=== PATIENT | male | born 1935 | race African-American/Black ===

== ENCOUNTER 2018-06-14 15:41 | Inpatient (IN) ==
[2018-06-14 17:45] LABS: Basophils # 0.1 10*3/uL (0.0-0.2); Eosinophils # 0.3 10*3/uL (0.0-0.87); Eosinophils % 0.1 % (0.00-10.9); Hematocrit 36.7 VOL% (42.0-52.0); Immature Granulocytes % 0.3 %; Immature Granulocytes Absolute 0.72 #; Lymphocytes # 233.5 10*3/uL (1.4-4.0); Lymphocytes % 93.5 % (21.2-54.2); Mean Corpuscular HGB Conc 26.7 GM/DL (32-36); Mean Corpuscular Hemoglobin 25 PG (27-34); Mean Corpuscular Volume 92.9 FL (87-102); Mean Platelet Volume 10.4 FL (9.6-12.0); Monocytes # 7.7 10*3/uL (0.11-0.8); Monocytes % 3.1 % (1.7-12.7); Neutrophils # 7.5 10*3/uL (1.4-7.4); Platelet Count 174 T/CUMM (130-400); Red Blood Count 3.95 MC/CUMM (3.8-5.5); Red Cell Distribution Width 14.9 % (9.3-17.3)
[2018-06-14 17:54] LABS: Hemoglobin 9.7 GM/DL (14.0-18.0); White Blood Count 249.8 T/CUMM (4-12)
[2018-06-14 17:59] LABS: Osmolality,Calculated 294.8 MOS/KG (273-304); Potassium 4.3 MMOL/L (3.5-5.1)
[2018-06-14] MEDS ORDERED: ONDANSETRON 4 MG/2 ML VIAL IV PRN (18:06)
[2018-06-14] MEDS ORDERED: ACETAMINOPHEN 325 MG TABLET PO PRN (18:06)
[2018-06-14 21:01] LABS: Lymphocytes 95 % (20-55); Segmented Neutrophils 5 % (50-85); Total Cells Counted 100
[2018-06-14 21:02] LABS: Anisocytosis Slight; Smudge Cells Many
[2018-06-14 21:05] LABS: Platelet Estimate Adequate
[2018-06-14] MEDS: CLINDAMYCIN INJ 900 MG in PREMIX 1 EACH IV SCH (22:39)
[2018-06-14] MEDS: LACTATED RINGERS 1,000 ML IV SCH (22:39)
[2018-06-15] MEDS: CLINDAMYCIN INJ 900 MG in PREMIX 1 EACH IV SCH ×4 (04:38→22:52)
[2018-06-15] MEDS: LACTATED RINGERS 1,000 ML IV SCH ×3 (08:01→23:37)
[2018-06-15] MEDS: PANTOPRAZOLE 40 MG TABLET PO SCH (10:00)
[2018-06-15] MEDS ORDERED: BUPIVACAINE MPF 0.25% 30 ML VIAL ONE (13:28)
[2018-06-15] MEDS ORDERED: LIDOCAINE 1%/EPI INJ 20 ML VIAL ONE (13:28)
[2018-06-15] MEDS ORDERED: PROPOFOL 200 MG/20 ML VIAL IV ONE (15:07)
[2018-06-15] MEDS ORDERED: fentaNYL 100 MCG/2 ML VIAL ONE (15:08)
[2018-06-15] MEDS: TRIAMTERENE/HCTZ 37.5-25 MG TABLET PO SCH (17:46)
[2018-06-15] MEDS: amLODIPine 10 MG TABLET PO SCH (17:46)
[2018-06-15] MEDS: MORPHINE 4 MG/1 ML VIAL IV PRN (18:21)
[2018-06-16] MEDS: CLINDAMYCIN INJ 900 MG in PREMIX 1 EACH IV SCH ×4 (05:04→22:58)
[2018-06-16] MEDS: PANTOPRAZOLE 40 MG TABLET PO SCH (08:37)
[2018-06-16] MEDS: ASPIRIN EC 81 MG TABLET PO SCH (08:37)
[2018-06-16] MEDS: TRIAMTERENE/HCTZ 37.5-25 MG TABLET PO SCH (08:37)
[2018-06-16] MEDS: amLODIPine 10 MG TABLET PO SCH (08:38)
[2018-06-16] MEDS: LACTATED RINGERS 1,000 ML IV SCH (08:40)
[2018-06-16] MEDS ORDERED: TRIAMTERENE/HCTZ 37.5-25 MG TABLET PO SCH (09:00)
[2018-06-16] MEDS ORDERED: amLODIPine 10 MG TABLET PO SCH (09:00)
[2018-06-16 09:58] LABS: Calcium 8.2 MG/DL (8.5-10.1); Osmolality,Calculated 292.1 MOS/KG (273-304); Potassium 4.4 MMOL/L (3.5-5.1)
[2018-06-16] MEDS: MORPHINE 4 MG/1 ML VIAL IV PRN (13:58)
[2018-06-17] MEDS: CLINDAMYCIN INJ 900 MG in PREMIX 1 EACH IV SCH ×2 (04:41→12:38)
[2018-06-17] MEDS: TRIAMTERENE/HCTZ 37.5-25 MG TABLET PO SCH (09:36)
[2018-06-17] MEDS: PANTOPRAZOLE 40 MG TABLET PO SCH (09:36)
[2018-06-17] MEDS: amLODIPine 10 MG TABLET PO SCH (09:36)
[2018-06-17] MEDS: ASPIRIN EC 81 MG TABLET PO SCH (09:36)
[2018-06-17 11:06] VITALS: BP 131/80
== END 2018-06-17 15:14 | disposition home health service (06) | DRG 603 ==
LOC: N.ED 15:41 → N.EDINP 18:06 → N.3E 19:11
PROVIDERS: ADMIT Surgery; ATTEND Surgery